=== PATIENT | female | born 1950 | race Caucasian/White ===

== ENCOUNTER 2019-03-31 08:00 | Outpatient (CLI) | payer MEDICARE | END 2019-03-31 23:59 | disposition home or self-care (01) | LOC: ROC 08:00 | PROVIDERS: ATTEND Radiology Radiation Oncology | DX: C54.1 Malignant neoplasm of endometrium (principal) | CPT/HCPCS: 99214; G0463 ==

== ENCOUNTER → 2019-06-09 | Outpatient (CLI) | payer MEDICARE ==
[~2019-06-09] MED LIST: ALEN70TA6 PO; AMLO-150 PO; ATEN25TA PO; TRIA50CA PO
== END | disposition home or self-care (01) ==
LOC: CFH 08:32
PROVIDERS: ATTEND Specialist
DX: C54.1 Malignant neoplasm of endometrium (principal); I70.0 Atherosclerosis of aorta
CPT/HCPCS: 71250; 74176

== ENCOUNTER 2019-07-07 07:47 | Outpatient (CLI) | payer MEDICARE | END 2019-07-07 23:59 | disposition home or self-care (01) | LOC: ROC 07:47 | PROVIDERS: ATTEND Radiology Radiation Oncology | DX: Z08 Encounter for follow-up examination after completed treatment for malignant neoplasm (principal); C54.1 Malignant neoplasm of endometrium | CPT/HCPCS: 99212; G0463 ==

== ENCOUNTER → 2019-12-16 | Outpatient (CLI) | payer MEDICARE ==
[~2019-12-16] MED LIST changes: -ALEN70TA6 PO; +ALEN70TA66 PO
== END | disposition home or self-care (01) ==
LOC: ROC 07:20
PROVIDERS: ATTEND Radiology Radiation Oncology
DX: Z08 Encounter for follow-up examination after completed treatment for malignant neoplasm (principal); Z85.42 Personal history of malignant neoplasm of other parts of uterus
CPT/HCPCS: 99212; G0463

== ENCOUNTER → 2020-05-11 | Outpatient (CLI) | payer MEDICARE ==
[~2020-05-11] MED LIST changes: -ALEN70TA66 PO; +ALEN70TA77 PO
== END | disposition home or self-care (01) ==
LOC: ROC 07:03
PROVIDERS: ATTEND Radiology Radiation Oncology
DX: Z08 Encounter for follow-up examination after completed treatment for malignant neoplasm (principal); C54.1 Malignant neoplasm of endometrium
CPT/HCPCS: 99212; G0463